=== PATIENT | male | born 1995 | race Caucasian/White ===

== ENCOUNTER 2016-08-23 14:36 | Emergency (ER) | payer OTHER ==
[~2016-08-23] VITALS: Ht 167.6 cm; Wt 69.9 kg
--- NOTE | 2016-08-23 15:24 | ED GENERAL ADULT ---
History of Present Illness General Chief Complaint: General Adult Stated Complaint: PT IS HERE FOR RT SIDE PAIN AND FEVER Vital Signs & Intake/Output Vital Signs & Intake/Output Vital Signs Date Time Temp Pulse Resp B/P B/P Pulse O2 O2 Flow FiO2 Mean Ox Delivery Rate 08/23 1449 100.9 106 18 134/66 98 Room Air Allergies Coded Allergies: NO KNOWN ALLERGIES (12/04/10) Triage Note: C/O LOWER ABDOMINAL PAIN WITH NAUSEA SINCE 0800, PAIN RADIATES TO BACK AND IS STEADY. Past History Travel History Traveled to [place] past 21 day No Medical History Respiratory: asthma Psychosocial History What is your primary language Lao Tobacco Use: Never used ETOH Use: denies use Progress Plan of Care: Orders Procedure Date/time Status URINALYSIS 08/23 1521 Active HIGH SENSITIVITY CRP 08/23 1521 Active COMPREHENSIVE METABOLIC PANEL 08/23 1521 Active CBC WITHOUT DIFFERENTIAL 08/23 1521 Active AMYLASE 08/23 1521 Active Departure Departure Condition: Stable Referrals: WARNER LENTZ MD (PCP/Family) Departure Forms: Customer Survey General Discharge Information
[2016-08-23] MEDS ORDERED: MONTELUKAST SOD10 M1 PO (15:43)
[2016-08-23] MEDS ORDERED: EPINASTINE HCL5 ML (15:43)
[2016-08-23] MEDS ORDERED: ALLEGRA-D 24 H1 EACH PO (15:43)
[2016-08-23 15:46] LABS: ABSOLUTE BASOPHIL COUNT 0 /CUMM (0.0-0.2); ABSOLUTE EOSINOPHIL COUNT 0 /CUMM (0.0-0.7); ABSOLUTE GRANULOCYTE CT 14.4 /CUMM (1.4-6.5); ABSOLUTE LYMPH COUNT 1.1 /CUMM (1.2-3.4); BASOPHIL % 0.1 % (0.0-2.0); EOSINOPHIL % 0.1 % (0-5); HEMATOCRIT 44.3 % (42-52); MEAN CORPUSCULAR HGB 30.4 PG (27.0-31.0); MEAN CORPUSCULAR HGB CONC 34.9 G/DL (33.0-37.0); MEAN CORPUSCULAR VOLUME 86.9 FL (80.0-94.0); MEAN PLATELET VOLUME 7.1 FL (7.4-10.4); PLATELET COUNT 177 /CUMM (130-400); RBC DISTRIBUTION WIDTH 14.5 % (11.5-14.5); WHITE BLOOD CELL COUNT 16.6 /CUMM (4.8-10.8)
[2016-08-23 15:56] LABS: GRANULOCYTE % 87.2 % (42.2-75.2)
--- NOTE | 2016-08-23 16:01 | ED GI/GU/ABDOMINAL COMPLAINT ---
History of Present Illness General Chief Complaint: General Adult Stated Complaint: PT IS HERE FOR RT SIDE PAIN AND FEVER Source: patient Exam Limitations: no limitations Vital Signs & Intake/Output Vital Signs & Intake/Output Vital Signs Date Time Temp Pulse Resp B/P B/P Pulse O2 O2 Flow FiO2 Mean Ox Delivery Rate 08/23 2009 99.0 70 22 122/78 98 08/23 1736 99.9 97 16 139/65 97 Room Air ED Intake and Output 08/24 0000 08/23 1200 Intake Total 1000 Output Total 200 Balance 800 Intake, IV 1000 Output, Urine 200 Patient 154 lb Weight Weight Reported by Patient Measurement Method Allergies Coded Allergies: NO KNOWN ALLERGIES (12/04/10) Triage Note: C/O LOWER ABDOMINAL PAIN WITH NAUSEA SINCE 0800, PAIN RADIATES TO BACK AND IS STEADY. Triage Nurses Notes Reviewed? yes Onset: Gradual Duration: hour(s): (10) Timing: no prior history Quality/Severity: moderate, sharpness Severity Numbers: 8 Location: periumbilical, right lower quadrant Radiation: no radiation Activities at Onset: none Prior Abdominal Problems: none Modifying Factors: Worsens With: movement. HPI: Patient is a 20-year-old male presenting to the emergency department with chief complaint of fevers, chills, nausea and right lower quadrant pain that started this morning progressively getting worse. Pain is worse with palpation and movement. Denies taking anything at home to help with his symptoms. No history of similar symptoms in the past. No recent travel. Denies any recent antibiotic use. Denies any urinary frequency or urgency or dysuria. Denies any testicular pain. No change in bowel habits. No sick contacts. (LAVERNE CEBALLOS,XIANG) Reconcile Medications Epinastine HCl (Unknown Strength) DROPS (Unknown Dose) UNKNOWN (Reported) Fexofenadine/Pseudoephedrine (Edith-D 24 Hour Tablet) 180 MG-240 MG TAB.ER.24H 1 TAB PO DAILY ALLERGIES (Reported) Ibuprofen 800 MG TABLET 1 TAB PO TID PRN PAIN Montelukast Sodium 10 MG TABLET 1 TAB PO QPM ALLERGIES (Reported) [no school] shayla vargas was seen in this er on 08/23/16. no school 08/24/16 (ZANDRA HERNANDEZ,GARRY) Past History Travel History Traveled to [place] past 21 day No Medical History Any Pertinent Medical History? see below for history Respiratory: asthma Surgical History Surgical History: non-contributory Psychosocial History What is your primary language Palauan Tobacco Use: Never used ETOH Use: denies use Family History Hx Contributory? No (XIANG MAGALLANES) Review of Systems Review of Systems Constitutional: Reports: fever. Comments Review of systems: See HPI, All other systems negative. Constitutional, no weight loss HEENT: No visual changes no sore throat no congestion Cardiovascular: No chest pain ,palpitation , orthopnea or ankle swelling Skin, no jaundice no rashes Respiratory: No dyspnea cough sputum or hemoptysis GI: no vomiting : No dysuria No hematuria Muscle skeletal: no back pain, no neck pain, Neurologic: No numbness no confusion NO [place] Psych: No stress anxiety or depression,. Heme/endocrine: No bruising no bleeding no polyuria or polydipsia Immunology: No splenectomy or history of AIDS (XIANG MAGALLANES) Physical Exam Physical Exam General Appearance: well developed/nourished, no apparent distress, alert, awake , comfortable Gastrointestinal: normal bowel sounds, soft, guarding, tenderness Comments: Well-developed well-nourished person in no acute distress HEENT: Pupils equally round and reactive to light and accommodation. Nose is atraumatic. Neck: Normal inspection Back: Nontender, no CVA tenderness. Cardiovascular: Regular rate and rhythms no murmurs rubs or gallops, normal JVP Respiratory: Chest nontender. No respiratory distress.breath sounds clear to auscultation bilaterally Abdomen: Soft, tenderness palpation in the right lower quadrant with rebound and guarding. Positive tenderness over McBurney's point. Positive psoas an grain cleaner and transfer operator sign. Nondistended, no appreciable organomegaly. Normal bowel sounds. No ascites Extremity: No edema Neuro: Alert oriented x3 Skin: No appreciable rash on exposed skin, skin is warm and dry. Psych: Mood and affect is normal, memory and judgment is normal. Core Measures ACS in differential dx? No Severe Sepsis Present: No Septic Shock Present: No (XIANG MAGALLANES) Progress Differential Diagnosis: UTI, APPT, KIDNEY STONE Plan of Care: Orders Procedure Date/time Status Add-on Test (ER Only) 08/23 1823 Active Add-on Test (ER Only) 08/23 1736 Active Add-on Test (ER Only) 08/23 1708 Active CULTURE,URINE 08/23 1640 Active CHLAMYDIA-GC DNA PROBE 08/23 1640 Complete MONOSPOT TEST 08/23 1530 Complete LACTIC ACID 08/23 1530 Complete CREATINE PHOSPHOKINASE 08/23 1530 Complete Diagnostic Imaging: Viewed by Me: CT Scan. Discussed w/RAD: CT Scan. Initial ED EKG: none Comments: 08/23/2016 6:08:35 PM on reevaluation patient feeling much improved. Minimal right lower quadrant pain on exam. They were informed of all lab work results and imaging study results. No signs of appendicitis on CAT scan. Since patient 's symptoms are so classic of appendicitis a page was put out to Dr. Barillas so that they can examine patient prior to discharge. Pending call back from Dr. Barillas. 08/23/2016 8:07:30 PM patient was seen and evaluated by surgical physician anesthesiologist assistant certified. They do not feel patient has appendicitis. They think that patient may have passed a kidney stone. Patient will follow-up with his primary care physician. Patient nontoxic. Feeling much better after fluids and Toradol. (XIANG MAGALLANES) Departure Departure Time of Disposition: 2001 Disposition: HOME OR SELF CARE Condition: Stable Clinical Impression Primary Impression: Abdominal pain Qualifiers: Abdominal location: right lower quadrant Qualified Code: R10.31 - Right lower quadrant pain Referrals: WARNER LENTZ MD (PCP/Family) Additional Instructions: Follow-up with your primary care physician cALL appointment. Increase fluids. Take Motrin and Tylenol for any aches or pains. Return for worsening symptoms or concerns. Departure Forms: Customer Survey D/C INS-APPENDICITIS EXCLUSION General Discharge Information (XIANG MAGALLANES) Departure Prescriptions: Current Visit Scripts [no school] Ibuprofen 1 TAB PO TID PRN PAIN #20 TAB PA/CALL CENTER OPERATOR Co-Sign Statement Statement: ED Attending supervision documentation- [] I saw and evaluated the patient. I have also reviewed all the pertinent lab results and diagnostic results. I agree with the findings and the plan of care as documented in the PA's/CALL CENTER OPERATOR's documentation. [X] I have reviewed the ED Record and agree with the PA's/CALL CENTER OPERATOR's documentation. [] Additions or exceptions (if any) to the PAs/CALL CENTER OPERATOR's note and plan are summarized below: [] (ZANDRA HERNANDEZ,GARRY)
--- NOTE | 2016-08-23 17:06 | CT SCAN REPORT ---
EXAMINATION: CT ABDOMEN AND PELVIS WITH CONTRAST CLINICAL INFORMATION: Right lower quadrant pain. Rule out appendicitis. COMPARISON: None TECHNIQUE: Multidetector volumetric imaging was performed of the abdomen and pelvis before and after the IV administration of 95 mL of Optiray 320 intravenous contrast. Sagittal and coronal reformatted images were obtained on the technologist's workstation. DLP: 269 mGy-cm FINDINGS: LUNG BASES: The visualized lung bases are unremarkable. LIVER, GALLBLADDER, AND BILIARY TREE: The liver is normal in size, shape, and attenuation. No focal hepatic lesion or biliary ductal dilatation is present. The gallbladder is unremarkable with no evidence of radiopaque gallstones, gallbladder wall thickening, or obvious pericholecystic inflammatory changes. PANCREAS: Unremarkable. SPLEEN: Spleen measures 14 cm in greatest diameter, borderline enlarged. ADRENAL GLANDS: Unremarkable. KIDNEYS AND URETERS: Kidneys are normal in size, shape, and cortical thickness. There is subtle striation of the right bilateral nephrograms with a few linear foci of hypoattenuation extending from the renal calyces of the adjacent cortex. This may be due to the phase of enhancement, though underlying renal pathology is possible. No significant perinephric stranding. No significant hydronephrosis or hydroureter. No nephrolithiasis. BLADDER: Unremarkable. GASTROINTESTINAL TRACT: Stomach, small bowel, and colon are normal in caliber. No bowel wall thickening or surrounding inflammation. Appendix is normal. Moderate amount stool is present throughout the colon. ABDOMINAL WALL: No significant hernia is appreciated. LYMPH NODES: Normal. VASCULAR: Unremarkable. PELVIC VISCERA: The prostate and seminal vesicles are unremarkable. OSSEOUS STRUCTURES: There is a small focus of excrescent bone at the inferior margin of the right ischium which may be due to a prior avulsion injury or developmental variation. No acute osseous abnormalities. Bone mineralization is normal. IMPRESSION: 1. Normal appendix. No acute abnormalities are identified in the right lower quadrant. 2. Questionable striation of the right nephrogram and more subtle separation on the left side. Recommend correlation with urinalysis as this could be due to very early pyelonephritis but is not specific. This may also be related to phase of contrast enhancement. 3. Borderline splenomegaly 4. Moderate stool volume throughout the colon.
--- NOTE | 2016-08-23 20:01 | ED GI/GU/ABDOMINAL COMPLAINT ---
History of Present Illness General Chief Complaint: General Adult Stated Complaint: PT IS HERE FOR RT SIDE PAIN AND FEVER Vital Signs & Intake/Output Vital Signs & Intake/Output Vital Signs Date Time Temp Pulse Resp B/P B/P Pulse O2 O2 Flow FiO2 Mean Ox Delivery Rate 08/23 1736 99.9 97 16 139/65 97 Room Air 08/23 1449 100.9 106 18 134/66 98 Room Air Allergies Coded Allergies: NO KNOWN ALLERGIES (12/04/10) Reconcile Medications Epinastine HCl (Unknown Strength) DROPS (Unknown Dose) UNKNOWN (Reported) Fexofenadine/Pseudoephedrine (Edith-D 24 Hour Tablet) 180 MG-240 MG TAB.ER.24H 1 TAB PO DAILY ALLERGIES (Reported) Montelukast Sodium 10 MG TABLET 1 TAB PO QPM ALLERGIES (Reported) Triage Note: C/O LOWER ABDOMINAL PAIN WITH NAUSEA SINCE 0800, PAIN RADIATES TO BACK AND IS STEADY. Past History Travel History Traveled to [place] past 21 day No Medical History Respiratory: asthma Surgical History Surgical History: non-contributory Psychosocial History What is your primary language Hebrew Tobacco Use: Never used ETOH Use: denies use Progress Plan of Care: Orders Procedure Date/time Status Add-on Test (ER Only) 08/23 1823 Active Add-on Test (ER Only) 08/23 1736 Active Add-on Test (ER Only) 08/23 1708 Active CULTURE,URINE 08/23 1640 Active CHLAMYDIA-GC DNA PROBE 08/23 1640 Active BLOOD CULTURE 08/23 1621 Active MONOSPOT TEST 08/23 1530 Complete LACTIC ACID 08/23 153 Complete C-REACTIVE PROTEIN 08/23 1530 Complete CREATINE PHOSPHOKINASE 08/23 1530 Complete URINALYSIS 08/23 1521 Complete COMPREHENSIVE METABOLIC PANEL 08/23 1521 Complete CBC WITHOUT DIFFERENTIAL 08/23 152 Complete AMYLASE 08/23 1521 Complete Laboratory Tests 08/23/16 1640: Urinalysis LIGHT H, Urine Color YEL, Urine Clarity CLEAR, Urine pH 7.5, Ur Specific [place] 1.015, Urine Protein TRACE H, Urine Ketones NEG, Urine Nitrite NEG, Urine Bilirubin NEG, Urine Urobilinogen 0.2, Ur Leukocyte Esterase NEG, Ur Microscopic SEDIMENT EXAMINED, Urine WBC RARE, Urine Bacteria FEW H, Urine Hemoglobin NEG, Urine Glucose NEG 08/23/16 1530: Anion Gap 12, Estimated GFR > 60, BUN/Creatinine Ratio 13.0, Glucose 104 H, Lactic Acid 1.0, Calcium 9.3, Total Bilirubin 1.2, AST 22, ALT 42, Alkaline Phosphatase 68, Creatine Kinase 91, C-Reactive Prot, Quant 5.1 H, Total Protein 7.3, Albumin 4.6, Globulin 2.7, Albumin/Globulin Ratio 1.7, Amylase 53, CBC w Diff NO MAN DIFF REQ, RBC 5.10, MCV 86.9, MCH 30.4, RDW 14.5, MPV 7.1 L, Gran % 87.2 H, Lymphocytes % 6.4 L, Monocytes % 6.2, Eosinophils % 0.1, Basophils % 0.1, Absolute Granulocytes 14.4 H, Absolute Lymphocytes 1.1 L, Absolute Monocytes 1.0 H, Absolute Eosinophils 0, Absolute Basophils 0, PUBS MCHC 34.9, Infectious [place] Titer NEGATIVE 08/23/16 1529: C-Reactive Prot, Quant Cancelled Microbiology 08/23 1640 URINE ROUT: GC DNA Probe - RECD 08/23 1640 URINE ROUT: Chlamydia DNA Probe (HERI) - RECD 08/23 1640 URINE ROUT: Urine Culture - RECD 08/23 1621 BLOOD: Blood Culture - ORD 08/23 162 BLOOD: Blood Culture - ORD Departure Departure Disposition: HOME OR SELF CARE Condition: Stable Referrals: WARNER LENTZ MD (PCP/Family) Departure Forms: Customer Survey General Discharge Information
--- NOTE | 2016-08-23 20:02 | Cons- General Surgery ---
General Information and HPI Consulting Request Date of Consult: 08/23/16 Requested By: TUCKER Rothman, ER Reason for Consult: Abdominal pain Source of Information: patient, family, old records Exam Limitations: no limitations History of Present Illness: 20-year-old male presents to the ER with complaints of sudden onset of right lower quadrant and right lower pelvic pain that started this morning, it woke him from sleep. He was moderate when he woke up, He then went into the shower and the pain became suddenly severe in the right lower quadrant causing nausea and vomiting. He also had pain in the right lower back and pain radiating into the right testicle. He had a chill and mild fever. He presented to the ER for further evaluation. In the ER he was noted to have a mild temperature of 100.9, elevated white blood cell count of 16,000, CRP of 5, CT scan of the abdomen and pelvis with IV contrast was ordered which showed a normal appendix and possible striation of the right nephrogram. Surgery was asked to reevaluate the patient for an acute abdomen. He received IV fluids and IV Toradol in the ER and his pain has resolved. He has a family history of his father and grandfather having kidney stones, he has no previous abdominal surgery. He denies any urinary symptoms. Allergies/Medications Allergies: Coded Allergies: NO KNOWN ALLERGIES (12/04/10) Home Med List: Epinastine HCl (Unknown Strength) DROPS (Unknown Dose) UNKNOWN (Reported) Fexofenadine/Pseudoephedrine (Edith-D 24 Hour Tablet) 180 MG-240 MG TAB.ER.24H 1 TAB PO DAILY ALLERGIES (Reported) Ibuprofen 800 MG TABLET 1 TAB PO TID PRN PAIN Montelukast Sodium 10 MG TABLET 1 TAB PO QPM ALLERGIES (Reported) Past History Medical History Respiratory: asthma Surgical History Pertinent Surgical History: none Psychosocial History ETOH Use: denies use Review of Systems Review of Systems: Review of systems: See HPI, all other systems negative. Constitutional: See HPI HEENT: No visual changes no sore throat no congestion Cardiovascular: No chest pain ,palpitation , orthopnea or ankle swelling Skin: No jaundice no rashes Respiratory: No dyspnea cough sputum or hemoptysis GI: See HPI : No dysuria no hematuria Musclulo skeletal: Right-sided lower back pain no neck pain, Neurologic: No numbness no confusion Psych: No stress anxiety or depression,. Heme/endocrine: No bruising no bleeding no polyuria or polydipsia Immunology: No splenectomy or history of AIDS Exam & Diagnostic Data Vital Signs and I&O Vital Signs Date Time Temp Pulse Resp B/P B/P Pulse O2 O2 Flow FiO2 Mean Ox Delivery Rate 08/23 2009 99.0 70 22 122/78 98 08/23 1736 99.9 97 16 139/65 97 Room Air 08/23 1449 100.9 106 18 134/66 98 Room Air Intake & Output 08/23 0000 08/22 0000 Intake Total Output Total Balance Patient 154 lb Weight Weight Reported by Patient Measurement Method Physical Exam: Well-developed well-nourished no apparent distress. HEENT: Atraumatic, extraocular motion intact Neck: Supple, no lymphadenopathy Heart: Regular rate and rhythm Respiratory: No respiratory distress clear to auscultation bilateral Abdomen: Soft, no guarding, no rebound, mild tenderness in the right lower pelvic region inferior to McBurney's point. No peritoneal signs Extremities: No edema, no calf pain Neuro: Alert and oriented x3 Psych: Mood affect normal, normal memory normal judgment. Skin: Warm and dry, no rash on exposed skin Last 24 Hours of Labs: Laboratory Tests 08/23 08/23 1640 1530 Chemistry Sodium (137 - 145 mmol/L) 135 L Potassium (3.5 - 5.1 mmol/L) 4.2 Chloride (98 - 107 mmol/L) 99 Carbon Dioxide (22 - 30 mmol/L) 24 Anion Gap (5 - 16) 12 BUN (9 - 20 mg/dL) 13 Creatinine (0.7 - 1.2 mg/dL) 1.0 Estimated GFR (>60 ml/min) > 60 BUN/Creatinine Ratio (7 - 25 %) 13.0 Glucose (65 - 99 mg/dL) 104 H Lactic Acid (0.7 - 2.1 mmol/L) 1.0 Calcium (8.4 - 10.2 mg/dL) 9.3 Total Bilirubin (0.2 - 1.3 mg/dL) 1.2 AST (17 - 59 U/L) 22 ALT (21 - 72 U/L) 42 Alkaline Phosphatase (< 127 U/L) 68 Creatine Kinase (55 - 170 U/L) 91 C-Reactive Prot, Quant (<1.0 mg/dL) 5.1 H Total Protein (6.3 - 8.2 g/dL) 7.3 Albumin (3.5 - 5.0 g/dL) 4.6 Globulin (1.9 - 4.2 gm/dL) 2.7 Albumin/Globulin Ratio (1.1 - 2.2 %) 1.7 Amylase (30 - 110 U/L) 53 Hematology CBC w Diff NO MAN DIFF REQ WBC (4.8 - 10.8 /CUMM) 16.6 H RBC (4.70 - 6.10 /CUMM) 5.10 Hgb (14.0 - 18.0 G/DL) 15.5 Hct (42 - 52 %) 44.3 MCV (80.0 - 94.0 FL) 86.9 MCH (27.0 - 31.0 PG) 30.4 RDW (11.5 - 14.5 %) 14.5 Plt Count (130 - 400 /CUMM) 177 MPV (7.4 - 10.4 FL) 7.1 L Gran % (42.2 - 75.2 %) 87.2 H Lymphocytes % (20.5 - 51.1 %) 6.4 L Monocytes % (1.7 - 9.3 %) 6.2 Eosinophils % (0 - 5 %) 0.1 Basophils % (0.0 - 2.0 %) 0.1 Absolute Granulocytes (1.4 - 6.5 /CUMM) 14.4 H Absolute Lymphocytes (1.2 - 3.4 /CUMM) 1.1 L Absolute Monocytes (0.10 - 0.60 /CUMM) 1.0 H Absolute Eosinophils (0.0 - 0.7 /CUMM) 0 Absolute Basophils (0.0 - 0.2 /CUMM) 0 PUBS MCHC (33.0 - 37.0 G/DL) 34.9 Serology Infectious [place] Titer (NEGATIVE) NEGATIVE Urines Urinalysis LIGHT H Urine Color (YEL,AMB,STR) YEL Urine Clarity (CLEAR) CLEAR Urine pH (5.0 - 8.0) 7.5 Ur Specific [place] (1.001 - 1.035) 1.015 Urine Protein (NEG,<30 MG/DL) TRACE H Urine Ketones (NEG) NEG Urine Nitrite (NEG) NEG Urine Bilirubin (NEG) NEG Urine Urobilinogen (0.1 - 1.0 EU/dl) 0.2 Ur Leukocyte Esterase (NEG) NEG Ur Microscopic SEDIMENT EXAMINED Urine WBC (0 - 2 /HPF) RARE Urine Bacteria (NEG/NONE) FEW H Urine Hemoglobin (NEG) NEG Urine Glucose (N MG/DL) NEG 08/23 1528 Chemistry C-Reactive Prot, Quant Cancelled Imaging Results: PATIENT: MORGAN CRAMER PRESENT AGE: 20 PATIENT ACCOUNT NO: [id number] : 96 LOCATION: [facility] ORDERING PHYSICIAN: XIANG CEBALLOS SERVICE DATE: 08/23/16 EXAM TYPE: CAT - CT ABD & PELVIS W IV CONTRAST EXAMINATION: CT ABDOMEN AND PELVIS WITH CONTRAST CLINICAL INFORMATION: Right lower quadrant pain. Rule out appendicitis. COMPARISON: None TECHNIQUE: Multidetector volumetric imaging was performed of the abdomen and pelvis before and after the IV administration of 95 mL of Optiray 320 intravenous contrast. Sagittal and coronal reformatted images were obtained on the technologist's workstation. DLP: 269 mGy-cm FINDINGS: LUNG BASES: The visualized lung bases are unremarkable. LIVER, GALLBLADDER, AND BILIARY TREE: The liver is normal in size, shape, and attenuation. No focal hepatic lesion or biliary ductal dilatation is present. The gallbladder is unremarkable with no evidence of radiopaque gallstones, gallbladder wall thickening, or obvious pericholecystic inflammatory changes. PANCREAS: Unremarkable. SPLEEN: Spleen measures 14 cm in greatest diameter, borderline enlarged. ADRENAL GLANDS: Unremarkable. KIDNEYS AND URETERS: Kidneys are normal in size, shape, and cortical thickness. There is subtle striation of the right bilateral nephrograms with a few linear foci of hypoattenuation extending from the renal calyces of the adjacent cortex. This may be due to the phase of enhancement, though underlying renal pathology is possible. No significant perinephric stranding. No significant hydronephrosis or hydroureter. No nephrolithiasis. BLADDER: Unremarkable. GASTROINTESTINAL TRACT: Stomach, small bowel, and colon are normal in caliber. No bowel wall thickening or surrounding inflammation. Appendix is normal. Moderate amount stool is present throughout the colon. ABDOMINAL WALL: No significant hernia is appreciated. LYMPH NODES: Normal. VASCULAR: Unremarkable. PELVIC VISCERA: The prostate and seminal vesicles are unremarkable. OSSEOUS STRUCTURES: There is a small focus of excrescent bone at the inferior margin of the right ischium which may be due to a prior avulsion injury or developmental variation. No acute osseous abnormalities. Bone mineralization is normal. IMPRESSION: 1. Normal appendix. No acute abnormalities are identified in the right lower quadrant. 2. Questionable striation of the right nephrogram and more subtle separation on the left side. Recommend correlation with urinalysis as this could be due to very early pyelonephritis but is not specific. This may also be related to phase of contrast enhancement. 3. Borderline splenomegaly 4. Moderate stool volume throughout the colon. DICTATED BY: KAYLEY PANTOJA MD DATE/TIME DICTATED:08/23/161653 INSURANCE LOSS CONTROL SURVEYOR:LUCILLE DATE/TIME TRANSCRIBED:08/23/161653 Assessment/Plan Assessment/Plan 20-year-old male with right lower quadrant abdominal pain sudden onset, mild fever nausea vomiting strong family history of kidney stones no family history of appendicitis who had a CT scan which shows a normal appendix. Patient symptoms have nearly completely resolved after IV Toradol. I suspect he has a small kidney stone was likely obscured by the IV contrast on his CT scan today. He is stable for discharge home and should return to the ER with worsening abdominal pain nausea vomiting or fever. Discussed with Dr. Barillas, patient and family and the ER physician certified physician assistant who understand and agree with plan. Recommend straining urine as outpatient and pain medication as needed. Problem List: 1. Abdominal pain 2. Kidney stone on right side Consult Acknowledgment - Thank you for your consult request.
[2016-08-23] MEDS ORDERED: IBUPROFEN800 M1 PO (20:07)
[2016-08-23 20:10] VITALS: BP 122/78
[2016-08-24] MEDS ORDERED: [UNRECOGNIZED DRUG - REMARK] (16:44)
== END 2016-08-23 20:10 ==
LOC: ERH 14:36
PROVIDERS: Emergency Medicine
DX: R10.31 Right lower quadrant pain (principal)
CPT/HCPCS: 74177; 81001; 87040; 87086; 87491; 87591; 96361; 96374; 96375; J1885